=== PATIENT | male | born 2000 | race Caucasian/White ===

== ENCOUNTER 2021-06-16 13:19 | Emergency (ER) | payer MEDICAID, SELFPAY ==
--- NOTE | 2021-06-16 14:32 | PC.NURSE ---
Went out and cALLED PT name. No response. Assumed pt [id number]
[2021-06-16 14:33] VITALS: BP 0/0; PULSE 0; RESP 0; TEMP -17.7; TEMP 0
== END 2021-06-16 14:34 | disposition left against medical advice (07) ==
LOC: UTC 13:24
PROVIDERS: Emergency Provider Nurse Practitioner Family
DX: Z53.21 Procedure and treatment not carried out due to patient leaving prior to being seen by health care provider (principal)